=== PATIENT | male | born 1945 | race Caucasian/White ===

== ENCOUNTER → 2017-04-20 | Outpatient (CLI) | payer MEDICARE, OTHER | END | disposition home or self-care (01) | LOC: PCVCCLINIC 15:11 | PROVIDERS: ATTEND Internal Medicine Cardiovascular Disease | DX: I25.10 Atherosclerotic heart disease of native coronary artery without angina pectoris (principal); I10 Essential (primary) hypertension; I49.3 Ventricular premature depolarization; E78.00 Pure hypercholesterolemia, unspecified; Z91.041 Radiographic dye allergy status; Z79.82 Long term (current) use of aspirin; Z90.49 Acquired absence of other specified parts of digestive tract | CPT/HCPCS: 36415; 93005; G0463 ==

== ENCOUNTER → 2017-04-27 | Outpatient (CLI) | payer MEDICARE, OTHER | END | disposition home or self-care (01) | LOC: PCVCCLINIC 08:56 | PROVIDERS: ATTEND Internal Medicine Cardiovascular Disease | DX: E78.00 Pure hypercholesterolemia, unspecified (principal); I25.10 Atherosclerotic heart disease of native coronary artery without angina pectoris; I10 Essential (primary) hypertension | CPT/HCPCS: 36415; 85610 ==

== ENCOUNTER → 2017-05-05 | Outpatient (CLI) | payer MEDICARE, OTHER ==
[~2017-05-05] MED LIST: REGADENOSON 0.4 MG/5 ML DISP.SYRIN. IV ONE
--- NOTE | 2017-05-05 13:00 | PCVCIMAG ---
APPROVED REPORT Study performed: 05/05/2017 07:48:27 EXAM: Comprehensive 2D, Doppler, and color-flow Echocardiogram Patient Location: Echo lab Status: routine BSA: 2.11 HR: 49 bpmBP: 132/80 mmHg Rhythm: Bradycardia Other Information Study Quality: Adequate Risk Factors: Cardiac Risk Factors: HTN Indications Bradycardia CAD 2D Dimensions LVEF(%): 39.69 (>50%) IVSd: 10.62 (7-11mm) LVDd: 49.98 mm PWd: 8.93 (7-11mm)Ascending Ao: 44.54 (22-36mm) LVDs: 40.30 (25-40mm) Left Atrium: 37.24 (27-40mm) Aortic Root: 38.32 mm LV Single Plane 4CH: 41.94 % LV Single Plane 2CH: 47.05 %Lowery's LVEF: 44.49 % Volumes Left Atrial Volume (Systole) Single Plane 4CH: 59.72 mLSingle Plane 2CH: 70.05 mL LA ESV Index: 34.00 mL/m2 Aortic Valve AoV Peak Felix.: 1.15 m/s AO Peak Gr.: 5.31 mmHgLVOT Max P.97 mmHg LVOT Max V: 0.70 m/s AI Vmax: 3.32 m/s AI Trego: 1.49 m/s2 AI PHT: 647.33 ms Mitral Valve E/A Ratio: 0.9 MV Decel. Time: 335.95 ms MV E Max Felix.: 0.48 m/s MV A Felix.: 0.51 m/s IVRT: 169.55 ms Pulmonary Valve PV Peak Felix.: 0.80 m/sPV Peak Gr.: 2.56 mmHg Pulmonary Vein P Vein S: 0.28 m/sP Vein A: 0.29 m/s P Vein D: 0.43 m/sP Vein A Dur.: 179.9 msec P Vein S/D Ratio: 0.65 Tricuspid Valve TR Peak Felix.: 2.20 m/s TR Peak Gr.: 19.34 mmHg Left Ventricle The left ventricle is normal size. There is normal LV segmental wall motion. There is normal left ventricular wall thickness. Left ventricular systolic function is mildly decreased. LVEF is 45%. Grade I - abnormal relaxation pattern. Right Ventricle The right ventricle is normal size. The right ventricular systolic function is normal. Atria The left atrium size is normal. The right atrium size is normal. Aortic Valve The aortic valve is normal in structure. Mild to moderate aortic regurgitation. There is no aortic valvular stenosis. Mitral Valve The mitral valve is normal in structure. Trace mitral regurgitation. No evidence of mitral valve stenosis. Tricuspid Valve The tricuspid valve is normal in structure. Trace tricuspid regurgitation with PAP of 26 mmHg. Pulmonic Valve The pulmonary valve is normal in structure. Mild pulmonic regurgitation. Great Vessels The aortic root is normal in size. The ascending aorta is moderately dilated to 4.5 cm. IVC is normal in size and collapses with >50% inspiration Pericardium There is no pericardial effusion. <Conclusion> The left ventricle is normal size. Left ventricular systolic function is mildly decreased. LVEF is 45%. Grade I - abnormal relaxation pattern. The right ventricle is normal size. The left atrium size is normal. Mild to moderate aortic regurgitation. Trace mitral regurgitation. Trace tricuspid regurgitation with PAP of 26 mmHg. There is no pericardial effusion.
--- NOTE | 2017-05-05 15:42 | PCVCIMAG ---
APPROVED REPORT Exam: Nuclear Stress Test Indication: CAD , Dyspnea, Fatigue, Abnormal EKG Patient Location: Out-Patient Stress Nurse: Stephenie Barrientos RN, Gertrudis Cortez RN MS Tech:May CarterJOSE LUIS solis Ht: 5 ft 11 in Wt: 195 lbs BSA: 2.09 m2 HR: 52 bpm BP: 161/77 mmHg BMI: 27.1 Rhythm: Sinus Bradycardia, PVC's, First degree AV Block Medical History Medical History: HTN, Hyperlipidemia, Age Medications: Aspirin, Zetia, Prilosec Allergies: Multiple Statins, Iodine Previous Cardiac Procedures: Cath 2013 Mod-Severe LAD/Ramus Pretest Chest Pain Characteristics: No chest pain Exercise History: Indeterminate Stress Test Details Stress Test: Pharmacologic stress testing performed using 0.4 mg of regadenoson per 5 mL given IV over 10 seconds. Reason for pharmacologic stress test: physical limitation. HR Resting HR: 52 bpmMax Heart Rate (APMHR): 147 bpm Max HR Achieved: 100 bpmTarget HR (85% APMHR): 124 bpm % of APMHR: 68 Recovery HR: 82 bpm BP Resting BP: 161/77 mmHg Max BP: 159/79 mmHg ECG Resting ECG: Sinus Rhythm, 1st degree AV block, PVCs Stress ECG: Sinus Rhythm, 1st degree AV block ST Change: Non-ischemic Arrhythmia: Fusion complexes Recovery ECG: Sinus Rhythm, 1st degree AV block Clinical Reason for Termination: Completed protocoll Stress Symptoms: Mild Headache Exercise duration: 0 min 55 sec Exercise capacity: 1.0 METs Symptoms resolved during recovery. NM EXAM: Myocardial Perfusion REST/STRESS Imaging Protocol: Rest Tc-99m/Stress Tc-99m 1 day Resting Data Rest SPECT myocardial perfusion imaging was performed in supine position 45 minutes following the intravenous injection of 10.6 mCi of Tc-99m Sestamibi. Time of rest injection: 829 Date: 05/05/2017 Administration Route: IV Administration Site: Right Arm Pharmacologic Stress Pharmacologic stress test was performed by injecting Regadenoson 0.4 mg IV push followed by the intravenous injection of 33.4 mCi of Tc-99m Sestamibi. Time of stress injection: 949 Date: 05/05/2017 Administration Route: IV Administration Site: Right Arm Gated Stress SPECT was performed 45 minutes after stress injection. The images were gated to evaluate regional wall motion and calculate left ventricular ejection fraction. Study Quality Study: Good Study Data Post stress, the left ventricular ejection was 63%.. SSS: 0 SRS: 2 SDS: 0 TID = 0.94. Perfusion There is a medium area of moderately reduced uptake in the basal segment of the inferolateral wall which is seen on the stress images and normalizes on the resting images. This area thickens and moves normally and is most consistent with ischemia. Wall Motion Normal left ventricular wall motion. Nuclear Conclusion ECG Findings: negative for ischemia Clinical Findings: non-diagnostic Nuclear Findings: positive for ischemia This study reveals ischemia in the basal inferolateral segment. There is normal global and segmental LV systolic function.
== END | disposition home or self-care (01) ==
LOC: PCVCIMAG 07:48
PROVIDERS: ATTEND Internal Medicine Cardiovascular Disease
DX: I08.3 Combined rheumatic disorders of mitral, aortic and tricuspid valves (principal); I25.10 Atherosclerotic heart disease of native coronary artery without angina pectoris; I10 Essential (primary) hypertension; E78.00 Pure hypercholesterolemia, unspecified; R94.31 Abnormal electrocardiogram [ECG] [EKG]; I49.3 Ventricular premature depolarization; I44.0 Atrioventricular block, first degree; Z91.041 Radiographic dye allergy status; Z88.8 Allergy status to other drugs, medicaments and biological substances; Z79.82 Long term (current) use of aspirin; Z79.899 Other long term (current) drug therapy; Z90.49 Acquired absence of other specified parts of digestive tract
CPT/HCPCS: 78452; 93017; 93306; A9500; G0463; J2785

== ENCOUNTER → 2017-06-08 | Outpatient (CLI) | payer MEDICARE, OTHER | END | disposition home or self-care (01) | LOC: PCVCCLINIC 10:28 | PROVIDERS: ATTEND Internal Medicine Cardiovascular Disease | DX: I25.10 Atherosclerotic heart disease of native coronary artery without angina pectoris (principal); I10 Essential (primary) hypertension; I35.1 Nonrheumatic aortic (valve) insufficiency; E78.00 Pure hypercholesterolemia, unspecified; R94.31 Abnormal electrocardiogram [ECG] [EKG]; I44.0 Atrioventricular block, first degree; Z79.82 Long term (current) use of aspirin | CPT/HCPCS: 93005; G0463 ==

== ENCOUNTER → 2017-06-17 | Outpatient (CLI) | payer MEDICARE, OTHER ==
--- NOTE | 2017-06-17 12:50 | PCVCIMAG ---
EXAM: ULTRASOUND GUIDED THROMBIN INJECTION OF LEFT GROIN PSEUDOANEURYSM INDICATION: Groin pseudoaneurysm following catheterization procedure. PROCEDURE: Procedure and risks of ultrasound guided thrombin injection of the groin pseudoaneurysm were discussed with the patient and consent obtained. Risks included but were not limited to bleeding, infection, vascular thrombosis, allergic reaction, and limb loss. The left groin was prepped and draped in the normal sterile fashion. Under ultrasound guidance I carefully placed a 20 g spinal needle into the center of the pseudoaneurysm cavity and gently instilled the minimal amount of thrombin solution needed to arrest flow in the cavity under direct color-flow imaging. Needle was removed. Normal arterial and venous flow was documented in the common femoral artery and vein, respectively. No immediate complications. FINDINGS: Technically satisfactory ultrasound guided thrombin injection of the groin pseudoaneurysm. No flow in the pseudoaneurysm remains. Good flow in the adjacent tejon femoral artery and vein is present. Distal pulses are stable compared with preprocedure. IMPRESSION: Left groin pseudoaneurysm injection was satisfactory as reviewed above. LOC:[id number]
== END | disposition home or self-care (01) ==
LOC: PCVCINTER 10:53
PROVIDERS: ATTEND Nuclear Medicine Nuclear Cardiology
DX: I72.8 Aneurysm of other specified arteries (principal)
CPT/HCPCS: 36002; 76936

== ENCOUNTER → 2017-06-23 | Outpatient (CLI) | payer MEDICARE, OTHER | END | disposition home or self-care (01) | LOC: PCVCCLINIC 09:19 | PROVIDERS: ATTEND Internal Medicine Cardiovascular Disease | DX: I25.10 Atherosclerotic heart disease of native coronary artery without angina pectoris (principal); I47.1 Supraventricular tachycardia; I72.9 Aneurysm of unspecified site; E78.00 Pure hypercholesterolemia, unspecified; R94.31 Abnormal electrocardiogram [ECG] [EKG]; I44.0 Atrioventricular block, first degree; Z79.899 Other long term (current) drug therapy; Z79.82 Long term (current) use of aspirin | CPT/HCPCS: 93005; G0463 ==

== ENCOUNTER → 2017-10-22 | Outpatient (CLI) | payer MEDICARE, OTHER | END | disposition home or self-care (01) | LOC: PCVCCLINIC 08:55 | DX: I25.10 Atherosclerotic heart disease of native coronary artery without angina pectoris (principal); I10 Essential (primary) hypertension; R00.1 Bradycardia, unspecified; E78.00 Pure hypercholesterolemia, unspecified; Z79.82 Long term (current) use of aspirin | CPT/HCPCS: 80061; 93005; G0463 ==

== ENCOUNTER → 2018-04-29 | Outpatient (CLI) | payer MEDICARE, OTHER ==
--- NOTE | 2018-04-29 09:25 | PCVCIMAG ---
APPROVED REPORT Study performed: 04/29/2018 08:10:42 EXAM: Comprehensive 2D, Doppler, and color-flow Echocardiogram Patient Location: Echo lab Status: routine BSA: 2.18 HR: 55 bpmBP: 144/88 mmHg Rhythm: Bradycardia Other Information Study Quality: Adequate Risk Factors: Cardiac Risk Factors: HTN Indications Bradycardia CAD 2D Dimensions IVSd: 9.51 (7-11mm) LVDd: 53.02 mm PWd: 10.68 (7-11mm)Ascending Ao: 42.71 (22-36mm) LVDs: 36.41 (25-40mm) Left Atrium: 35.62 (27-40mm) Aortic Root: 39.12 mm LV Single Plane 4CH: 61.56 % LV Single Plane 2CH: 57.18 % Volumes Left Atrial Volume (Systole) Single Plane 4CH: 66.90 mLSingle Plane 2CH: 82.86 mL LA ESV Index: 35.00 mL/m2 Aortic Valve AoV Peak Felix.: 1.16 m/s AO Peak Gr.: 5.39 mmHgLVOT Max P.33 mmHg LVOT Max V: 0.91 m/s AI Vmax: 3.53 m/s AI Glades: 1.84 m/s2 AI PHT: 557.85 ms Mitral Valve E/A Ratio: 1.4 MV Decel. Time: 270.20 ms MV E Max Felix.: 0.63 m/s MV A Felix.: 0.45 m/s IVRT: 145.33 ms Pulmonary Valve PV Peak Felix.: 1.08 m/sPV Peak Gr.: 4.65 mmHg Pulmonary Vein P Vein S: 0.28 m/sP Vein A: 0.33 m/s P Vein D: 0.45 m/sP Vein A Dur.: 162.6 msec P Vein S/D Ratio: 0.62 Tricuspid Valve TR Peak Fleix.: 2.46 m/s TR Peak Gr.: 24.26 mmHg Left Ventricle The left ventricle is normal size. There is normal LV segmental wall motion. There is normal left ventricular wall thickness. Left ventricular systolic function is normal. The left ventricular ejection fraction is within the normal range. LVEF is 55-60%. Grade I - abnormal relaxation pattern. Right Ventricle The right ventricle is normal size. The right ventricular systolic function is normal. Atria Left atrium is mildly dilated. The right atrium size is normal. Aortic Valve The aortic valve is normal in structure. Mild to moderate aortic regurgitation. There is no aortic valvular stenosis. Mitral Valve The mitral valve is normal in structure. There is trace mitral valve regurgitation noted. No evidence of mitral valve stenosis. Tricuspid Valve The tricuspid valve is normal in structure. Trace tricuspid regurgitation with PAP of 30 mmHg. Pulmonic Valve The pulmonary valve is normal in structure. Mild to moderate pulmonic regurgitation. Great Vessels The aortic root is normal in size. The ascending aorta is mildly dilated to 4.3 cm. IVC is normal in size and collapses >50% with inspiration. Pericardium There is no pericardial effusion. There is no pleural effusion. <Conclusion> The left ventricle is normal size. There is normal left ventricular wall thickness. Left ventricular systolic function is normal. Grade I - abnormal relaxation pattern. The right ventricle is normal size. Left atrium is mildly dilated. Mild to moderate aortic regurgitation. There is trace mitral valve regurgitation noted. Trace tricuspid regurgitation with PAP of 30 mmHg.
== END | disposition home or self-care (01) ==
LOC: PCVCIMAG 09:11
PROVIDERS: ATTEND Internal Medicine Cardiovascular Disease
DX: I37.1 Nonrheumatic pulmonary valve insufficiency (principal); I35.1 Nonrheumatic aortic (valve) insufficiency; E78.5 Hyperlipidemia, unspecified; E78.00 Pure hypercholesterolemia, unspecified; I10 Essential (primary) hypertension; R94.31 Abnormal electrocardiogram [ECG] [EKG]; Z88.8 Allergy status to other drugs, medicaments and biological substances; I25.10 Atherosclerotic heart disease of native coronary artery without angina pectoris; Z79.82 Long term (current) use of aspirin; Z79.899 Other long term (current) drug therapy
CPT/HCPCS: 93005; 93306; G0463

== ENCOUNTER → 2018-10-28 | Outpatient (CLI) | payer MEDICARE, OTHER ==
--- NOTE | 2018-10-28 10:51 | PCVCIMAG ---
APPROVED REPORT Imaging Protocol: Rest Tc-99m/Stress Tc-99m 1 day Study performed: 10/28/2018 08:53:43 Indication: CAD Patient Location: Out-Patient Stress Nurse: Stephenie Barrientos RN, ANSHU Smith Tech:Giuseppe Tony NMROSE MARYB Ht: 6 ft 0 in Wt: 208 lbs BSA: 2.17 m2 HR: 59 bpm BP: 173/80 mmHg BMI: 28.20 Rhythm: Sinus Rhythm, First Degree AV Block, PAC, PVC Medical History Medical History: Age, Hyperlipidemia, HTN Medications: ASA, Plavix, Prilosec, Prilosec Allergies: Statins, Iodine Previous Cardiac Procedures: PCI Exercise History: Indeterminate Physical Disabilities: Back Resting Data Rest SPECT myocardial perfusion imaging was performed in supine position 45 minutes following the intravenous injection of 10.8 mCi of Tc-99m Sestamibi. Time of rest injection: 809 Date: 10/28/2018 Administration Route: IV Administration Site: Right Hand Pharmacologic Stress Pharmacologic stress test was performed by injecting Regadenoson 0.4 mg IV push over 10-15 seconds immediately followed by the intravenous injection of 35.4 mCi of Tc-99m Sestamibi. Time of stress injection: 919 Date: 10/28/2018 Administration Route: IV Administration Site: Right Hand Gated Stress SPECT was performed 45 minutes after stress injection. The images were gated to evaluate regional wall motion and calculate left ventricular ejection fraction. Stress Test Details Stress Test: Pharmacologic stress testing performed using 0.4 mg of regadenoson per 5 mL given IV over 10 seconds. HRMax Heart Rate (APMHR): 145 bpm Resting HR: 59 bpmTarget HR (85% APMHR): 123 bpm Max HR Achieved: 103 bpm % of APMHR: 71 Recovery HR: 86 bpm BP Resting BP: 173/80 mmHg Max BP: 175/80 mmHg Recovery BP: 170/84 mmHg ECG Resting ECG: Sinus Bradycardia, 1st degree AV block Stress ECG: Sinus Rhythm, 1st degree AV block ST Change: Non-ischemic Arrhythmia: PAC's, PVC's Recovery ECG: Sinus Rhythm, 1st degree AV block Clinical Reason for Termination: Completed protocol Stress Symptoms: Lightheaded Exercise duration: min 55 sec Symptoms resolved with caffeine. Study Quality Study: Good Study Data Post stress, the left ventricular ejection was 64%.. SSS: 5 SRS: 1 SDS: 4 TID = 0.91. Perfusion There is a small area of mildly reduced uptake in the basal segment of the inferolateral wall which is seen on the stress images and improves on the resting images. This area thickens and moves normally and is most consistent with ischemia. Wall Motion Normal left ventricular wall motion. Nuclear Conclusion ECG Findings: negative for ischemia Clinical Findings: non-diagnostic Nuclear Findings: positive for ischemia Exercise Capacity: not assessed Left Ventricular Function: normal This study reveals a mild reversible defect in the basal inferolateral segment, suggestive for ischemia. There is normal global and segmental LV systolic function.
== END | disposition home or self-care (01) ==
LOC: PCVCIMAG 07:56
PROVIDERS: ATTEND Internal Medicine Cardiovascular Disease
DX: I25.10 Atherosclerotic heart disease of native coronary artery without angina pectoris (principal); E78.5 Hyperlipidemia, unspecified; I10 Essential (primary) hypertension; R60.9 Edema, unspecified; E78.00 Pure hypercholesterolemia, unspecified; Z79.82 Long term (current) use of aspirin
CPT/HCPCS: 36415; 78452; 80061; 93017; A9500; G0463; J2785

== ENCOUNTER → 2019-05-02 | Outpatient (CLI) | payer MEDICARE, OTHER | END | disposition home or self-care (01) | LOC: PCVCCLINIC 14:26 | PROVIDERS: ATTEND Internal Medicine Cardiovascular Disease | DX: I25.10 Atherosclerotic heart disease of native coronary artery without angina pectoris (principal); I10 Essential (primary) hypertension; E78.5 Hyperlipidemia, unspecified; R60.9 Edema, unspecified; E78.00 Pure hypercholesterolemia, unspecified; Z88.8 Allergy status to other drugs, medicaments and biological substances; Z79.82 Long term (current) use of aspirin; Z79.899 Other long term (current) drug therapy; Z72.89 Other problems related to lifestyle | CPT/HCPCS: 93005; G0463 ==